=== PATIENT | female | born 2000 | race Caucasian/White ===

== ENCOUNTER 2021-03-27 12:21 | Emergency (ER) | payer BC ==
[~2021-03-27] VITALS: Ht 172.7 cm; Wt 97.7 kg
[2021-03-27 12:47] VITALS: TEMP 98.7
[2021-03-27] MEDS ORDERED: DESYREL 50MG50 MG PO (12:53)
[2021-03-27] MEDS ORDERED: EFFEXOR-XR150 MG PO (12:53)
[2021-03-27] MEDS ORDERED: NEXPLANON68 MG ID (12:53)
[2021-03-27] MEDS ORDERED: CYCLOGYL OP (14:21)
[2021-03-27 14:29] VITALS: BP 114/74; PULSE 93
== END 2021-03-27 14:30 | disposition home or self-care (01) ==
LOC: COL.ER 12:21
DX: H20.9 Unspecified iridocyclitis (principal); G43.909 Migraine, unspecified, not intractable, without status migrainosus; Z88.8 Allergy status to other drugs, medicaments and biological substances; Z79.899 Other long term (current) drug therapy